=== PATIENT | male | born 1965 | race Caucasian/White ===

== ENCOUNTER 2022-11-28 16:56 | Emergency (ER) | payer BC, SELFPAY ==
[2022-11-28 17:02] VITALS: BP 132/89; PULSE 74; RESP 20; TEMP 36.9; O2SAT 97
--- NOTE | 2022-11-28 17:24 | ED.EYEPROB ---
HPI - Eye Problem General Chief complaint: Eye Problems Stated complaint: Left eyelid injury Time Seen by Provider: 11/28/22 17:24 History of Present Illness HPI Narrative: PATIENT PRESENTS WITH LEFT EYE INJURY. PATIENT STATES HE WAS PICKING UP LIMBS AT THE YD AND DID NOT NOTICE ENTRY ADAME AND IT CAUGHT HIM ON THE LEFT SIDE OF HIS EYELID. PATIENT DENIES ANY VISION PROBLEMS NO PAIN TO HIS EYE. PATIENT DOES NOT WEAR GLASSES OR CONTACTS. Related Data Allergies Allergy/AdvReac Type Severity Reaction Status Date / Time No Known Allergies Allergy Verified 11/28/22 17:04 Review of Systems Review of Systems: CONSTITUTIONAL: DENIES FEVER, CHILLS, OR SWEATS. EYES: DENIES VISUAL CHANGES, REDNESS, OR DISCHARGE. ENT: DENIES RHINORRHEA, CONGESTION, SORE THROAT, OR OTALGIA. CARDIOVASCULAR: DENIES CHEST PAIN, PALPITATIONS, OR EDEMA. RESPIRATORY: DENIES COUGH OR DYSPNEA. GASTROINTESTINAL: DENIES ABDOMINAL PAIN, NAUSEA, VOMITING, OR DIARRHEA. GENITOURINARY: DENIES DYSURIA OR HEMATURIA. SKIN: DENIES RASH OR ITCHING. MUSCULOSKELETAL: DENIES BACK PAIN, JOINT PAIN, OR MYALGIA. NEUROLOGIC: DENIES HEADACHE, NUMBNESS, OR WEAKNESS. PSYCHIATRIC: DENIES ANXIETY OR DEPRESSION. [facility] Family History Family History (Updated 10/28/17 @ 09:48 by DOCTOR UNKNOWN) Father Family history of chronic obstructive pulmonary disease Social History Social History Smoking status: Former smoker Smoking end date: 09/06/86 Alcohol intake: current Comments AT TIME OF SIGNATURE, AGREE WITH NURSING PAST MEDICAL, SURGICAL, SOCIAL AND FAMILY HISTORY. THERE IS NO RELEVANT FAMILY HISTORY PERTINENT TO THE PRESENTING COMPLAINT Exam Narrative: GENERAL: WELL-APPEARING, WELL-NOURISHED, AND IN NO ACUTE DISTRESS. HEAD: NORMOCEPHALIC, ATRAUMATIC. EYES: PERRLA AND EOMI. SEE PROCEDURES FOR EYE EXAM ENT: NARES CLEAR, NO RHINORRHEA OR EPISTAXIS. MUCOUS MEMBRANES MOIST. NECK: SUPPLE. CHEST: CLEAR TO AUSCULTATION. NO RESPIRATORY DISTRESS. HEART: REGULAR RATE AND RHYTHM. NO MURMUR HEARD. NORMAL PERIPHERAL PULSES. ABDOMEN: SOFT, NONTENDER, NONDISTENDED, NORMAL ACTIVE BOWEL SOUNDS. EXTREMITIES: NORMAL RANGE OF MOTION. NO EDEMA. SKIN: WARM, DRY, NO RASH. NEURO: NO FOCAL DEFICITS. ALERT AND ORIENTED X3. JORGE COMA SCALE EYE OPENING: SPONTANEOUS 4 JORGE COMA SCALE MOTOR: OBEYS COMMANDS 6 JORGE COMA SCALE VERBAL: ORIENTED 5 JORGE COMA SCALE TOTAL 15 Course Course Level of Care: Express Care Visit Vital Signs Vital signs: Vital Signs Temperature 36.9 C 11/28/22 17:02 Pulse Rate 74 11/28/22 17:02 Respiratory Rate 20 11/28/22 17:02 Blood Pressure 132/89 11/28/22 17:02 Pulse Oximetry 97 11/28/22 17:02 Oxygen Delivery Room Air 11/28/22 17:02 Temperature 36.9 C 11/28/22 17:02 Pulse Rate 74 11/28/22 17:02 Respiratory Rate 20 11/28/22 17:02 Blood Pressure 132/89 11/28/22 17:02 Pulse Oximetry 97 11/28/22 17:02 Oxygen Delivery Room Air 11/28/22 17:02 DISCUSSED WITH PATIENT IF ANY NEW OR WORSENING SYMPTOMS GO TO ER IMMEDIATELY FOR FURTHER EVALUATION TREATMENT AND NEED AND TO FOLLOW-UP WITH AIRLINE ATTENDANT IN 24-48 HOURS Procedures Other Procedure Procedure 1: Other Procedure: PATIENT PLACED IN SUPINE POSITION AND lEFT EYE NUMBED WITH ALCAINE AND THEN STAINED TO LEFT EYE I EXAMINED WITH WOOD'S LAMP CORNEAL ABRASION TO 6:00 A.M. OF LEFT EYE. LEFT EYE THEN RINSED WITH NORMAL SALINE AND PATIENT TOLERATED PROCEDURE WELL. IN FORCE NEED TO FOLLOW UP WITH AIRLINE ATTENDANT IN 24-48 HOURS. Discharge Plan Discharge Clinical Impression: Corneal abrasion Patient Disposition: Home, Self-Care Condition: Stable Instructions: Antibiotic Form, Corneal Abrasion (DC) Additional Instructions: FOLLOW-UP WITH BULK TRUCK DRIVER IN 24-48 HOURS ANTIBIOTIC EYEDROPS PRESCRIBED TYLENOL AND IBUPROFEN NEEDED FOR PAIN OR DISCOMFORT IF ANY NEW OR WORSENING SYMPTOMS PLEASE GO TO THE EMERGENCY ROOM IMMEDIATELY FURTHER JOS[facility]UA
== END 2022-11-28 17:40 | disposition home or self-care (01) ==
PROVIDERS: Emergency Provider Nurse Practitioner Family
DX: S05.02XA Injury of conjunctiva and corneal abrasion without foreign body, left eye, initial encounter (principal); W22.8XXA Striking against or struck by other objects, initial encounter; Z87.891 Personal history of nicotine dependence
CPT/HCPCS: 99213; A9270; G0463